=== PATIENT | female | born 1950 | race Caucasian/White ===

== ENCOUNTER 2022-08-08 12:05 | Inpatient (IN) | payer OTHER ==
[2022-08-08] MEDS ORDERED: ALBUTEROL SO4 2.5/IPRATROPIUM 0.5 INH SOL 3 ML VIAL.NEB. NEB ONE (13:01)
[2022-08-08 14:25] LABS: BASO % 0.3 % (0-2.0); HEMATOCRIT 38.6 % (32.4-45.2); HEMOGLOBIN 12.7 GM/dL (10.7-15.3); LYMPH % 9.1 % (8-40); MCH 29.6 pg (25.7-33.7); MCHC 32.9 g/dl (32.0-36.0); MEAN PLT VOLUME 10.7 fl (7.5-11.1); NEUT % 86.6 % (42.8-82.8); PLATELET COUNT 191 10^3/uL (134-434); RBC 4.29 M/mm3 (3.60-5.2); RDW 13.5 % (11.6-15.6); WHITE BLOOD COUNT 10.9 K/mm3 (4.0-10.0)
[2022-08-08 14:48] LABS: CALCIUM 9.3 mg/dL (8.5-10.1)
[2022-08-08 14:49] LABS: ALBUMIN 3.1 g/dl (3.4-5.0)
[2022-08-08 14:52] LABS: CREATININE 1.1 mg/dL (0.55-1.3)
[2022-08-08 14:54] LABS: BILIRUBIN,TOTAL 0.3 mg/dL (0.2-1); TOT PROT 6.1 g/dl (6.4-8.2)
[2022-08-08] MEDS ORDERED: DEXAMETHASONE SOD PHOSPHATE 4 MG/1 ML VIAL IVPUSH ONE (18:14)
[2022-08-08] MEDS ORDERED: DEXAMETHASONE SOD PHOSPHATE 10 MG/1 ML VIAL ONE (20:55)
[2022-08-08] MEDS ORDERED: HEPARIN NA (PORCINE) 5,000 UNITS/ML 1ML VIAL ONE (20:55)
[2022-08-08] MEDS: HEPARIN NA (PORCINE) 5,000 UNITS/ML 1ML VIAL SQ SCH (21:11)
[2022-08-08] MEDS ORDERED: REMDESIVIR 200 MG in SODIUM CHLORIDE 250 ML IVPB ONE (21:13)
[2022-08-08] MEDS ORDERED: ACETAMINOPHEN 1000 MG/100 ML BAG IVPB PRN (21:13)
[2022-08-08] MEDS ORDERED: ALBUTEROL SO4 HFA INHALER IH PRN (21:13)
[2022-08-08] MEDS ORDERED: FAMOTIDINE 20 MG/50 ML IVPB 20 MG/50 ML MG IVPB ONE (22:57)
[2022-08-08] MEDS: FAMOTIDINE 20 MG/50 ML IVPB 20 MG/50 ML MG IVPB SCH (23:07)
[2022-08-08] MEDS: QUEtiapine FUMARATE 50 MG TABLET PO SCH (23:07)
[2022-08-09] MEDS: HEPARIN NA (PORCINE) 5,000 UNITS/ML 1ML VIAL SQ SCH ×3 (06:33→21:09)
[2022-08-09] MEDS: amLODIPine BESYLATE 10 MG TABLET (FP) PO SCH (09:24)
[2022-08-09] MEDS: MEMANTINE HCL 5 MG TABLET (UD) PO SCH (09:24)
[2022-08-09] MEDS: FAMOTIDINE 20 MG/50 ML IVPB 20 MG/50 ML MG IVPB SCH ×2 (09:24→21:10)
[2022-08-09] MEDS: DEXAMETHASONE SOD PHOSPHATE 10 MG/1 ML VIAL IVPUSH SCH (09:24)
[2022-08-09] MEDS ORDERED: DEXAMETHASONE 4 MG TABLET (FP) PO SCH (10:00)
[2022-08-09 11:02] LABS: HEMATOCRIT 39.2 % (32.4-45.2); HEMOGLOBIN 13.1 GM/dL (10.7-15.3); MCH 29.8 pg (25.7-33.7); MCHC 33.4 g/dl (32.0-36.0); MEAN CELL VOLUME 89.3 fl (80-96); MEAN PLT VOLUME 11.6 fl (7.5-11.1); PLATELET COUNT 178 10^3/uL (134-434); RBC 4.39 M/mm3 (3.60-5.2); RDW 13.6 % (11.6-15.6); WHITE BLOOD COUNT 7.8 K/mm3 (4.0-10.0)
[2022-08-09 11:26] LABS: ALBUMIN 2.8 g/dl (3.4-5.0); BLOOD UREA NITROGEN 32.9 mg/dL (7-18); MAGNESIUM 2.2 mg/dL (1.8-2.4)
[2022-08-09 11:29] LABS: PHOSPHOROUS 3.4 mg/dL (2.5-4.9)
[2022-08-09 11:31] LABS: BILIRUBIN,TOTAL 0.3 mg/dL (0.2-1); TOT PROT 5.9 g/dl (6.4-8.2)
[2022-08-09] MEDS ORDERED: REMDESIVIR IVPB ONE ×2 (13:32→15:00)
[2022-08-09] MEDS ORDERED: SODIUM CHLORIDE IVPB ONE ×2 (13:32→15:00)
[2022-08-09] MEDS ORDERED: SODIUM CHLORIDE IVPB SCH ×2 (13:45→15:00)
[2022-08-09] MEDS ORDERED: REMDESIVIR IVPB SCH ×2 (13:45→15:00)
[2022-08-09 16:09] LABS: EPI CELLS 6 /uL (0-25.1); HYALINE CASTS 0 /uL (0-3.1); URINE APPEARANCE CLOUDY; URINE BACTERIA >9,000 /uL (0-1359); URINE BILIRUBIN NEGATIVE (NEGATIVE); URINE COLOR YELLOW; URINE GLUCOSE (UA) NEGATIVE (NEGATIVE); URINE KETONE NEGATIVE (NEGATIVE); URINE LEUK ESTERASE NEGATIVE (NEGATIVE); URINE NITRITE POSITIVE (NEGATIVE); URINE PROTEIN 1+ (NEGATIVE); URINE RBC 5 /uL (0-23.9); URINE UROBILINOGEN 0.2 mg/dL (0.2-1.0)
[2022-08-09 17:43] LABS: URINE WBC 5 /uL (0-25.8)
[2022-08-09] MEDS: DONEPEZIL HCL 5 MG TABLET (FP) PO SCH (21:09)
[2022-08-09] MEDS: QUEtiapine FUMARATE 50 MG TABLET PO SCH (21:09)
[2022-08-10] MEDS: HEPARIN NA (PORCINE) 5,000 UNITS/ML 1ML VIAL SQ SCH ×3 (06:07→22:10)
[2022-08-10 12:34] LABS: CREATININE 0.8 mg/dL (0.55-1.3)
[2022-08-10] MEDS: DEXAMETHASONE SOD PHOSPHATE 10 MG/1 ML VIAL IVPUSH SCH (12:34)
[2022-08-10 12:36] LABS: ALBUMIN 2.6 g/dl (3.4-5.0); BILIRUBIN,TOTAL 0.2 mg/dL (0.2-1); BLOOD UREA NITROGEN 46.6 mg/dL (7-18); CALCIUM 8.8 mg/dL (8.5-10.1); TOT PROT 5.6 g/dl (6.4-8.2)
[2022-08-10] MEDS: MEMANTINE HCL 5 MG TABLET (UD) PO SCH (12:37)
[2022-08-10] MEDS: amLODIPine BESYLATE 10 MG TABLET (FP) PO SCH (12:37)
[2022-08-10] MEDS: FAMOTIDINE 20 MG/50 ML IVPB 20 MG/50 ML MG IVPB SCH ×2 (12:38→22:10)
[2022-08-10] MEDS: REMDESIVIR IVPB SCH (15:04)
[2022-08-10] MEDS: SODIUM CHLORIDE IVPB SCH (15:04)
[2022-08-10 15:29] VITALS: BMI 16.6
[2022-08-10] MEDS: DONEPEZIL HCL 5 MG TABLET (FP) PO SCH (22:10)
[2022-08-10] MEDS: QUEtiapine FUMARATE 50 MG TABLET PO SCH (22:10)
[2022-08-11] MEDS: HEPARIN NA (PORCINE) 5,000 UNITS/ML 1ML VIAL SQ SCH ×3 (05:42→22:42)
[2022-08-11] MEDS: AMINO ACIDS/PROTEIN HYDROLYS 30 ML LIQUID.PKT PO SCH (09:14)
[2022-08-11] MEDS: DEXAMETHASONE SOD PHOSPHATE 10 MG/1 ML VIAL IVPUSH SCH (09:15)
[2022-08-11] MEDS: MULTIVITAMINS (DAILY MVI) TABLET (FP) PO SCH (09:15)
[2022-08-11] MEDS: amLODIPine BESYLATE 10 MG TABLET (FP) PO SCH (09:15)
[2022-08-11] MEDS: ASCORBIC ACID 500 MG TABLET (FP) PO SCH (09:15)
[2022-08-11] MEDS: MEMANTINE HCL 5 MG TABLET (UD) PO SCH (09:15)
[2022-08-11] MEDS: FAMOTIDINE 20 MG/50 ML IVPB 20 MG/50 ML MG IVPB SCH ×2 (09:15→22:42)
[2022-08-11] MEDS: REMDESIVIR IVPB SCH (14:35)
[2022-08-11] MEDS: SODIUM CHLORIDE IVPB SCH (14:35)
[2022-08-11] MEDS: DONEPEZIL HCL 5 MG TABLET (FP) PO SCH (22:42)
[2022-08-11] MEDS: QUEtiapine FUMARATE 50 MG TABLET PO SCH (22:42)
[2022-08-12] MEDS: HEPARIN NA (PORCINE) 5,000 UNITS/ML 1ML VIAL SQ SCH ×3 (07:08→21:25)
[2022-08-12] MEDS: AMINO ACIDS/PROTEIN HYDROLYS 30 ML LIQUID.PKT PO SCH (08:33)
[2022-08-12] MEDS: FAMOTIDINE 20 MG/50 ML IVPB 20 MG/50 ML MG IVPB SCH ×2 (10:32→21:25)
[2022-08-12] MEDS: ASCORBIC ACID 500 MG TABLET (FP) PO SCH (10:32)
[2022-08-12] MEDS: MULTIVITAMINS (DAILY MVI) TABLET (FP) PO SCH (10:32)
[2022-08-12] MEDS: MEMANTINE HCL 5 MG TABLET (UD) PO SCH (10:32)
[2022-08-12] MEDS: amLODIPine BESYLATE 10 MG TABLET (FP) PO SCH (10:32)
[2022-08-12] MEDS: DEXAMETHASONE SOD PHOSPHATE 10 MG/1 ML VIAL IVPUSH SCH (10:32)
[2022-08-12] MEDS: REMDESIVIR IVPB SCH (14:39)
[2022-08-12] MEDS: SODIUM CHLORIDE IVPB SCH (14:39)
[2022-08-12] MEDS ORDERED: CEFTRIAXONE 1 GM in DEXTROSE 5%-WATER - 50 ML IVPB ONE (20:06)
[2022-08-12] MEDS: QUEtiapine FUMARATE 50 MG TABLET PO SCH (21:25)
[2022-08-12] MEDS: DONEPEZIL HCL 5 MG TABLET (FP) PO SCH (21:25)
[2022-08-13] MEDS: HEPARIN NA (PORCINE) 5,000 UNITS/ML 1ML VIAL SQ SCH ×3 (05:16→21:14)
[2022-08-13] MEDS: AMINO ACIDS/PROTEIN HYDROLYS 30 ML LIQUID.PKT PO SCH (08:07)
[2022-08-13] MEDS: MULTIVITAMINS (DAILY MVI) TABLET (FP) PO SCH (09:43)
[2022-08-13] MEDS: DEXAMETHASONE SOD PHOSPHATE 10 MG/1 ML VIAL IVPUSH SCH (09:43)
[2022-08-13] MEDS: MEMANTINE HCL 5 MG TABLET (UD) PO SCH (09:43)
[2022-08-13] MEDS: amLODIPine BESYLATE 10 MG TABLET (FP) PO SCH (09:43)
[2022-08-13] MEDS: ASCORBIC ACID 500 MG TABLET (FP) PO SCH (09:43)
[2022-08-13] MEDS: FAMOTIDINE 20 MG/50 ML IVPB 20 MG/50 ML MG IVPB SCH ×2 (09:44→21:15)
[2022-08-13 10:14] LABS: ALBUMIN 2.4 g/dl (3.4-5.0); BLOOD UREA NITROGEN 39.2 mg/dL (7-18); CREATININE 0.7 mg/dL (0.55-1.3)
[2022-08-13 10:15] LABS: BILIRUBIN,TOTAL 0.3 mg/dL (0.2-1); TOT PROT 5.1 g/dl (6.4-8.2)
[2022-08-13] MEDS ORDERED: DEXTROSE 5%-WATER - 1,000 ML IV SCH (10:15)
[2022-08-13 10:17] LABS: CALCIUM 8.2 mg/dL (8.5-10.1)
[2022-08-13] MEDS: CEFTRIAXONE 1 GM in DEXTROSE 5%-WATER - 50 ML IVPB SCH (13:19)
[2022-08-13] MEDS: DEXTROSE 5%-WATER - 1,000 ML IV SCH (16:40)
[2022-08-13] MEDS: QUEtiapine FUMARATE 50 MG TABLET PO SCH (21:15)
[2022-08-13] MEDS: DONEPEZIL HCL 5 MG TABLET (FP) PO SCH (21:15)
[2022-08-14 05:36] LABS: ARTERIAL BLD GAS O2 SATURATION 91.6 % (95-98); ARTERIAL BLOOD GAS BASE EXCESS -2.6 mmol/L (-2-2); ARTERIAL BLOOD GAS PO2 58.1 mmHg (80-100); ARTERIAL BLOOD GAS pH 7.445 (7.350-7.450)
[2022-08-14] MEDS: DEXTROSE 5%-WATER - 1,000 ML IV SCH ×3 (06:11→23:41)
[2022-08-14] MEDS ORDERED: PIPERACILLIN/TAZOB 4.5 GM 4.5 GM in DEXTROSE 5%-WATER 100 ML IVPB SCH ×2 (06:15→09:00)
[2022-08-14] MEDS: HEPARIN NA (PORCINE) 5,000 UNITS/ML 1ML VIAL SQ SCH ×4 (06:47→23:14)
[2022-08-14] MEDS: AMINO ACIDS/PROTEIN HYDROLYS 30 ML LIQUID.PKT PO SCH (08:45)
[2022-08-14] MEDS: PIPERACILLIN/TAZOB 4.5 GM 4.5 GM in DEXTROSE 5%-WATER 100 ML IVPB SCH ×2 (09:27→14:19)
[2022-08-14] MEDS: MEMANTINE HCL 5 MG TABLET (UD) PO SCH (09:28)
[2022-08-14] MEDS: amLODIPine BESYLATE 10 MG TABLET (FP) PO SCH (09:28)
[2022-08-14] MEDS: DEXAMETHASONE SOD PHOSPHATE 10 MG/1 ML VIAL IVPUSH SCH (09:28)
[2022-08-14] MEDS: FAMOTIDINE 20 MG/50 ML IVPB 20 MG/50 ML MG IVPB SCH ×3 (09:28→23:15)
[2022-08-14] MEDS: CEFTRIAXONE 1 GM in DEXTROSE 5%-WATER - 50 ML IVPB SCH (09:29)
[2022-08-14] MEDS: ASCORBIC ACID 500 MG TABLET (FP) PO SCH (09:30)
[2022-08-14] MEDS: MULTIVITAMINS (DAILY MVI) TABLET (FP) PO SCH (09:30)
[2022-08-14] MEDS ORDERED: VANCOMYCIN 1 GM in D5W (PRE-DOCKED) 1,000 MG/250 ML IVPB SCH (10:00)
[2022-08-14] MEDS: DONEPEZIL HCL 5 MG TABLET (FP) PO SCH ×2 (22:53→23:15)
[2022-08-14] MEDS: QUEtiapine FUMARATE 50 MG TABLET PO SCH ×2 (22:54→23:14)
[2022-08-15] MEDS: PIPERACILLIN/TAZOB 3.375 GM 3.375 GM in DEXTROSE 5%-WATER - 50 ML IVPB SCH ×3 (03:11→18:08)
[2022-08-15] MEDS: HEPARIN NA (PORCINE) 5,000 UNITS/ML 1ML VIAL SQ SCH ×3 (06:32→21:30)
[2022-08-15] MEDS: AMINO ACIDS/PROTEIN HYDROLYS 30 ML LIQUID.PKT PO SCH (08:57)
[2022-08-15 09:44] LABS: BASO % 0.1 % (0-2.0); HEMATOCRIT 38.8 % (32.4-45.2); HEMOGLOBIN 12.6 GM/dL (10.7-15.3); MCH 29.3 pg (25.7-33.7); MCHC 32.4 g/dl (32.0-36.0); MEAN CELL VOLUME 90.4 fl (80-96); MEAN PLT VOLUME 10.7 fl (7.5-11.1); MONO % 6.9 % (3.8-10.2); PLATELET COUNT 209 10^3/uL (134-434); RBC 4.29 M/mm3 (3.60-5.2); RDW 14.3 % (11.6-15.6); WHITE BLOOD COUNT 8.3 K/mm3 (4.0-10.0)
[2022-08-15 11:11] LABS: ALBUMIN 2.2 g/dl (3.4-5.0); BLOOD UREA NITROGEN 29.2 mg/dL (7-18); CALCIUM 8.3 mg/dL (8.5-10.1); MAGNESIUM 2.3 mg/dL (1.8-2.4)
[2022-08-15 11:15] LABS: BILIRUBIN,TOTAL 0.3 mg/dL (0.2-1); CREATININE 0.8 mg/dL (0.55-1.3); TOT PROT 5.2 g/dl (6.4-8.2)
[2022-08-15] MEDS: MEMANTINE HCL 5 MG TABLET (UD) PO SCH (11:27)
[2022-08-15] MEDS: DEXAMETHASONE SOD PHOSPHATE 10 MG/1 ML VIAL IVPUSH SCH (11:27)
[2022-08-15] MEDS: amLODIPine BESYLATE 10 MG TABLET (FP) PO SCH (11:28)
[2022-08-15] MEDS: FAMOTIDINE 20 MG/50 ML IVPB 20 MG/50 ML MG IVPB SCH ×2 (11:28→21:30)
[2022-08-15] MEDS: MULTIVITAMINS (DAILY MVI) TABLET (FP) PO SCH (11:28)
[2022-08-15] MEDS: ASCORBIC ACID 500 MG TABLET (FP) PO SCH (11:28)
[2022-08-15] MEDS: DEXTROSE 5%-WATER - 1,000 ML IV SCH ×3 (18:08→18:10)
[2022-08-15] MEDS: DONEPEZIL HCL 5 MG TABLET (FP) PO SCH (21:30)
[2022-08-15] MEDS: QUEtiapine FUMARATE 50 MG TABLET PO SCH (21:30)
[2022-08-16] MEDS: PIPERACILLIN/TAZOB 3.375 GM 3.375 GM in DEXTROSE 5%-WATER - 50 ML IVPB SCH ×3 (02:24→17:55)
[2022-08-16] MEDS: HEPARIN NA (PORCINE) 5,000 UNITS/ML 1ML VIAL SQ SCH ×3 (05:43→21:25)
[2022-08-16] MEDS: AMINO ACIDS/PROTEIN HYDROLYS 30 ML LIQUID.PKT PO SCH (08:35)
[2022-08-16 09:08] VITALS: RESP 20
[2022-08-16 09:56] LABS: HEMATOCRIT 35.9 % (32.4-45.2); HEMOGLOBIN 11.7 GM/dL (10.7-15.3); MCH 29.9 pg (25.7-33.7); MCHC 32.8 g/dl (32.0-36.0); MEAN CELL VOLUME 91.3 fl (80-96); MEAN PLT VOLUME 10.8 fl (7.5-11.1); PLATELET COUNT 191 10^3/uL (134-434); RBC 3.93 M/mm3 (3.60-5.2); RDW 14.2 % (11.6-15.6); WHITE BLOOD COUNT 11.2 K/mm3 (4.0-10.0)
[2022-08-16 10:16] LABS: ALBUMIN 2.1 g/dl (3.4-5.0); BLOOD UREA NITROGEN 33.6 mg/dL (7-18); MAGNESIUM 2.4 mg/dL (1.8-2.4)
[2022-08-16 10:19] LABS: CREATININE 0.8 mg/dL (0.55-1.3)
[2022-08-16 10:21] LABS: BILIRUBIN,TOTAL 0.2 mg/dL (0.2-1); TOT PROT 5.1 g/dl (6.4-8.2)
[2022-08-16] MEDS: DEXAMETHASONE SOD PHOSPHATE 10 MG/1 ML VIAL IVPUSH SCH (10:37)
[2022-08-16] MEDS: FAMOTIDINE 20 MG/50 ML IVPB 20 MG/50 ML MG IVPB SCH ×2 (10:38→21:26)
[2022-08-16] MEDS: amLODIPine BESYLATE 10 MG TABLET (FP) PO SCH (10:38)
[2022-08-16] MEDS: MULTIVITAMINS (DAILY MVI) TABLET (FP) PO SCH (10:38)
[2022-08-16] MEDS: MEMANTINE HCL 5 MG TABLET (UD) PO SCH (10:38)
[2022-08-16] MEDS: ASCORBIC ACID 500 MG TABLET (FP) PO SCH (10:38)
[2022-08-16] MEDS: SODIUM CHLORIDE 0.45% 1,000 ML IV SCH (11:55)
[2022-08-16 12:18] LABS: ANISOCYTOSIS 0; MACROCYTOSIS 0; PLATELET ESTIMATE NORMAL
[2022-08-16] MEDS: DONEPEZIL HCL 5 MG TABLET (FP) PO SCH (21:25)
[2022-08-16] MEDS: QUEtiapine FUMARATE 50 MG TABLET PO SCH (21:25)
[2022-08-17] MEDS: PIPERACILLIN/TAZOB 3.375 GM 3.375 GM in DEXTROSE 5%-WATER - 50 ML IVPB SCH ×3 (01:47→17:48)
[2022-08-17] MEDS: HEPARIN NA (PORCINE) 5,000 UNITS/ML 1ML VIAL SQ SCH ×3 (05:23→22:02)
[2022-08-17] MEDS: AMINO ACIDS/PROTEIN HYDROLYS 30 ML LIQUID.PKT PO SCH (10:04)
[2022-08-17] MEDS: MULTIVITAMINS (DAILY MVI) TABLET (FP) PO SCH (10:09)
[2022-08-17] MEDS: amLODIPine BESYLATE 10 MG TABLET (FP) PO SCH (10:09)
[2022-08-17] MEDS: MEMANTINE HCL 5 MG TABLET (UD) PO SCH (10:09)
[2022-08-17] MEDS: FAMOTIDINE 20 MG/50 ML IVPB 20 MG/50 ML MG IVPB SCH ×2 (10:09→22:02)
[2022-08-17] MEDS: DEXAMETHASONE SOD PHOSPHATE 10 MG/1 ML VIAL IVPUSH SCH (10:09)
[2022-08-17] MEDS: ASCORBIC ACID 500 MG TABLET (FP) PO SCH (10:09)
[2022-08-17 11:40] LABS: EOS % 0.1 % (0-4.5); HEMATOCRIT 38.4 % (32.4-45.2); HEMOGLOBIN 12.7 GM/dL (10.7-15.3); MCH 30.1 pg (25.7-33.7); MEAN CELL VOLUME 91.4 fl (80-96); MEAN PLT VOLUME 11.4 fl (7.5-11.1); MONO % 5.3 % (3.8-10.2); NEUT % 90.6 % (42.8-82.8); PLATELET COUNT 175 10^3/uL (134-434); RBC 4.21 M/mm3 (3.60-5.2); RDW 14.1 % (11.6-15.6)
[2022-08-17 11:48] LABS: ALBUMIN 2.4 g/dl (3.4-5.0); BLOOD UREA NITROGEN 30.2 mg/dL (7-18); CALCIUM 8.5 mg/dL (8.5-10.1); MAGNESIUM 2.5 mg/dL (1.8-2.4)
[2022-08-17 11:52] LABS: BILIRUBIN,TOTAL 0.3 mg/dL (0.2-1); CREATININE 0.8 mg/dL (0.55-1.3); TOT PROT 5.5 g/dl (6.4-8.2)
[2022-08-17] MEDS: SODIUM CHLORIDE 0.45% 1,000 ML IV SCH (14:29)
[2022-08-17] MEDS: DONEPEZIL HCL 5 MG TABLET (FP) PO SCH (22:02)
[2022-08-17] MEDS: QUEtiapine FUMARATE 50 MG TABLET PO SCH (22:03)
[2022-08-18] MEDS: PIPERACILLIN/TAZOB 3.375 GM 3.375 GM in DEXTROSE 5%-WATER - 50 ML IVPB SCH ×3 (01:35→17:10)
[2022-08-18] MEDS: HEPARIN NA (PORCINE) 5,000 UNITS/ML 1ML VIAL SQ SCH ×3 (06:42→21:41)
[2022-08-18] MEDS: AMINO ACIDS/PROTEIN HYDROLYS 30 ML LIQUID.PKT PO SCH (09:00)
[2022-08-18] MEDS: FAMOTIDINE 20 MG/50 ML IVPB 20 MG/50 ML MG IVPB SCH ×2 (09:00→21:40)
[2022-08-18] MEDS: ASCORBIC ACID 500 MG TABLET (FP) PO SCH (09:01)
[2022-08-18] MEDS: DEXAMETHASONE SOD PHOSPHATE 10 MG/1 ML VIAL IVPUSH SCH (09:01)
[2022-08-18] MEDS: MULTIVITAMINS (DAILY MVI) TABLET (FP) PO SCH (09:01)
[2022-08-18] MEDS: MEMANTINE HCL 5 MG TABLET (UD) PO SCH (09:01)
[2022-08-18] MEDS: amLODIPine BESYLATE 10 MG TABLET (FP) PO SCH (09:01)
[2022-08-18] MEDS: SODIUM CHLORIDE 0.45% 1,000 ML IV SCH (11:30)
[2022-08-18 12:14] LABS: HEMATOCRIT 38.6 % (32.4-45.2); HEMOGLOBIN 12.7 GM/dL (10.7-15.3); MCH 29.6 pg (25.7-33.7); MCHC 32.9 g/dl (32.0-36.0); MEAN CELL VOLUME 89.9 fl (80-96); MEAN PLT VOLUME 10.9 fl (7.5-11.1); PLATELET COUNT 167 10^3/uL (134-434); RBC 4.29 M/mm3 (3.60-5.2); RDW 13.9 % (11.6-15.6); WHITE BLOOD COUNT 24.9 K/mm3 (4.0-10.0)
[2022-08-18 12:35] LABS: BLOOD UREA NITROGEN 23.9 mg/dL (7-18); CALCIUM 8.6 mg/dL (8.5-10.1)
[2022-08-18 12:36] LABS: ALBUMIN 2.2 g/dl (3.4-5.0); MAGNESIUM 2.4 mg/dL (1.8-2.4)
[2022-08-18 12:39] LABS: CREATININE 0.6 mg/dL (0.55-1.3)
[2022-08-18 12:40] LABS: BILIRUBIN,TOTAL 0.5 mg/dL (0.2-1); TOT PROT 5.3 g/dl (6.4-8.2)
[2022-08-18 13:39] LABS: ANISOCYTOSIS 0; HELMET CELLS 0; HOWELL-JOLLY BODIES 0; MACROCYTOSIS 0; OVALOCYTE 0; ROULEAU 0; SICKELED CELLS 0; TARGET CELLS 0; TEAR DROP CELLS 0; TOXIC GRANULATION 0
[2022-08-18] MEDS: QUEtiapine FUMARATE 50 MG TABLET PO SCH (21:40)
[2022-08-18] MEDS: DONEPEZIL HCL 5 MG TABLET (FP) PO SCH (21:40)
[2022-08-19] MEDS: PIPERACILLIN/TAZOB 3.375 GM 3.375 GM in DEXTROSE 5%-WATER - 50 ML IVPB SCH ×3 (02:48→18:11)
[2022-08-19] MEDS: HEPARIN NA (PORCINE) 5,000 UNITS/ML 1ML VIAL SQ SCH ×3 (05:18→22:35)
[2022-08-19] MEDS: AMINO ACIDS/PROTEIN HYDROLYS 30 ML LIQUID.PKT PO SCH (09:06)
[2022-08-19] MEDS: DEXAMETHASONE SOD PHOSPHATE 10 MG/1 ML VIAL IVPUSH SCH (10:16)
[2022-08-19] MEDS: ASCORBIC ACID 500 MG TABLET (FP) PO SCH (10:17)
[2022-08-19] MEDS: FAMOTIDINE 20 MG/50 ML IVPB 20 MG/50 ML MG IVPB SCH ×2 (10:17→22:35)
[2022-08-19] MEDS: MEMANTINE HCL 5 MG TABLET (UD) PO SCH (10:17)
[2022-08-19] MEDS: amLODIPine BESYLATE 10 MG TABLET (FP) PO SCH (10:17)
[2022-08-19] MEDS: MULTIVITAMINS (DAILY MVI) TABLET (FP) PO SCH (10:17)
[2022-08-19 10:19] LABS: BASO % 0.1 % (0-2.0); EOS % 0.3 % (0-4.5); HEMOGLOBIN 12.4 GM/dL (10.7-15.3); LYMPH % 6.3 % (8-40); MCH 29.1 pg (25.7-33.7); MCHC 32.6 g/dl (32.0-36.0); MEAN CELL VOLUME 89.4 fl (80-96); MONO % 6.2 % (3.8-10.2); NEUT % 87.1 % (42.8-82.8); PLATELET COUNT 163 10^3/uL (134-434); RBC 4.25 M/mm3 (3.60-5.2); RDW 13.8 % (11.6-15.6); WHITE BLOOD COUNT 16.1 K/mm3 (4.0-10.0)
[2022-08-19 11:32] LABS: ALBUMIN 2.2 g/dl (3.4-5.0); BILIRUBIN,TOTAL 0.3 mg/dL (0.2-1); BLOOD UREA NITROGEN 18.4 mg/dL (7-18); CALCIUM 8.2 mg/dL (8.5-10.1); CREATININE 0.7 mg/dL (0.55-1.3); MAGNESIUM 2.4 mg/dL (1.8-2.4); TOT PROT 5.1 g/dl (6.4-8.2)
[2022-08-19] MEDS: SODIUM CHLORIDE 0.45% 1,000 ML IV SCH ×2 (14:45→18:10)
[2022-08-19] MEDS: QUEtiapine FUMARATE 50 MG TABLET PO SCH (22:35)
[2022-08-19] MEDS: DONEPEZIL HCL 5 MG TABLET (FP) PO SCH (22:35)
[2022-08-20] MEDS: PIPERACILLIN/TAZOB 3.375 GM 3.375 GM in DEXTROSE 5%-WATER - 50 ML IVPB SCH ×2 (02:03→10:23)
[2022-08-20] MEDS: HEPARIN NA (PORCINE) 5,000 UNITS/ML 1ML VIAL SQ SCH ×2 (05:27→13:31)
[2022-08-20] MEDS: AMINO ACIDS/PROTEIN HYDROLYS 30 ML LIQUID.PKT PO SCH (10:24)
[2022-08-20] MEDS: MULTIVITAMINS (DAILY MVI) TABLET (FP) PO SCH (10:24)
[2022-08-20] MEDS: ASCORBIC ACID 500 MG TABLET (FP) PO SCH (10:24)
[2022-08-20] MEDS: amLODIPine BESYLATE 10 MG TABLET (FP) PO SCH ×2 (10:24→10:26)
[2022-08-20] MEDS: MEMANTINE HCL 5 MG TABLET (UD) PO SCH (10:24)
[2022-08-20] MEDS: FAMOTIDINE 20 MG/50 ML IVPB 20 MG/50 ML MG IVPB SCH (11:19)
[2022-08-20] MEDS ORDERED: COLLAGENASE CLOSTRIDIUM HIST. 30 GRAMS TUBE TP SCH (12:15)
[2022-08-20 13:34] LABS: BASO % 0.1 % (0-2.0); EOS % 0.5 % (0-4.5); HEMATOCRIT 38.6 % (32.4-45.2); HEMOGLOBIN 12.8 GM/dL (10.7-15.3); MCH 29.8 pg (25.7-33.7); MEAN CELL VOLUME 90.3 fl (80-96); MONO % 7.8 % (3.8-10.2); NEUT % 84.6 % (42.8-82.8); PLATELET COUNT 192 10^3/uL (134-434); RBC 4.28 M/mm3 (3.60-5.2); RDW 13.8 % (11.6-15.6)
[2022-08-20 14:03] LABS: CALCIUM 8.3 mg/dL (8.5-10.1)
[2022-08-20 14:04] LABS: ALBUMIN 2.4 g/dl (3.4-5.0); BLOOD UREA NITROGEN 14.6 mg/dL (7-18); MAGNESIUM 2.3 mg/dL (1.8-2.4)
[2022-08-20 14:07] LABS: CREATININE 0.6 mg/dL (0.55-1.3)
[2022-08-20 14:08] LABS: BILIRUBIN,TOTAL 0.3 mg/dL (0.2-1)
[2022-08-20 14:09] LABS: TOT PROT 5.6 g/dl (6.4-8.2)
[2022-08-20 19:18] VITALS: BP 127/68; PULSE 74; TEMP 98
== END 2022-08-20 19:19 | disposition home or self-care (01) | DRG 871 ==
LOC: JER 12:05 → JERBED 18:15 → J6S 23:53
PROVIDERS: ADMIT Internal Medicine; ATTEND Nurse Practitioner Family
PROC: XW033E5 Introduction of Remdesivir Anti-infective into Peripheral Vein, Percutaneous Approach, New Technology Group 5 (ICD-10-PCS; principal; 2022-08-08)
DX: A41.89 Other specified sepsis (principal); E43 Unspecified severe protein-calorie malnutrition; J96.01 Acute respiratory failure with hypoxia; U07.1 COVID-19; G93.41 Metabolic encephalopathy; J69.0 Pneumonitis due to inhalation of food and vomit; N39.0 Urinary tract infection, site not specified; E87.0 Hyperosmolality and hypernatremia; E87.1 Hypo-osmolality and hyponatremia; Z68.1 Body mass index [BMI] 19.9 or less, adult; R64 Cachexia; F02.80 Dementia in other diseases classified elsewhere, unspecified severity, without behavioral disturbance, psychotic disturbance, mood disturbance, and anxiety; G30.9 Alzheimer's disease, unspecified; I10 Essential (primary) hypertension; B96.20 Unspecified Escherichia coli [E. coli] as the cause of diseases classified elsewhere
CPT/HCPCS: 0241U-QW; 36415; 36600; 71045-TC-FY; 80048; 80053; 81003; 82728; 82803; 83615; 83735; 84100; 85025; 85379; 85651; 86140; 87040; 87086; 87186; 93005; 93010; 94761; 99285-25; C9399; C9803-CS; J1100; J1644; U0003; U0005

== ENCOUNTER 2023-06-22 19:01 | Inpatient (IN) | payer OTHER ==
[2023-06-22] MEDS ORDERED: SODIUM CHLORIDE 0.9% 500 ML INFUS.BAG IV ONE (19:46)
[2023-06-22] MEDS ORDERED: PIPERACILLIN/TAZOB 3.375 GM 3.375 GM in DEXTROSE 5%-WATER - 50 ML IVPB ONE (19:52)
[2023-06-22] MEDS ORDERED: VANCOMYCIN 1,000 MG in DEXTROSE 5%-WATER - 250 ML IVPB ONE (19:52)
[2023-06-22] MEDS ORDERED: PIPERACILLIN/TAZOB 3.375 GM 3.375 GM/50 ML BAG IVPB ONE (20:48)
[2023-06-22 20:57] LABS: VENOUS O2 SATURATION 35.9 % (70-80); VENOUS PCO2 43.9 mmHg (38-52); VENOUS PH 7.269 (7.310-7.410)
[2023-06-22 21:52] LABS: BASO % 0.2 % (0-2.0); HEMATOCRIT 33.8 % (32.4-45.2); HEMOGLOBIN 10.6 GM/dL (10.7-15.3); LYMPH % 1.9 % (8-40); MCH 25.7 pg (25.7-33.7); MCHC 31.3 g/dl (32.0-36.0); MEAN CELL VOLUME 81.9 fl (80-96); MEAN PLT VOLUME 8.4 fl (7.5-11.1); MONO % 2.6 % (3.8-10.2); NEUT % 95.3 % (42.8-82.8); PLATELET COUNT 413 10^3/uL (134-434); RBC 4.12 M/mm3 (3.60-5.2); RDW 16.8 % (11.6-15.6)
[2023-06-22 21:54] LABS: LACTIC ACID 9.4 mmol/L (0.4-2.0)
[2023-06-22 21:57] LABS: INR 1.32 (0.83-1.09); PROTHROMBIN TIME (PATIENT) 15.3 SEC (9.7-13.0)
[2023-06-22 22:00] LABS: ACTIVATED PTT 41.7 SECONDS (25.2-36.5)
[2023-06-22] MEDS ORDERED: VANCOMYCIN 1 GRAM (PRE-DOCKED) 1,000 MG/250 ML BAG IVPB ONE (22:06)
[2023-06-22 23:05] LABS: POTASSIUM 4.4 mmol/L (3.5-5.1)
[2023-06-22 23:07] LABS: CALCIUM 8.5 mg/dL (8.5-10.1)
[2023-06-22 23:08] LABS: ALBUMIN 1.8 g/dl (3.4-5.0); BLOOD UREA NITROGEN 32.1 mg/dL (7-18)
[2023-06-22 23:11] LABS: CREATININE 1.2 mg/dL (0.55-1.3)
[2023-06-22 23:11] LABS: ANISOCYTOSIS 1+; PLATELET ESTIMATE INCREASED
[2023-06-22 23:12] LABS: BILIRUBIN,TOTAL 0.3 mg/dL (0.2-1); TOT PROT 5.7 g/dl (6.4-8.2)
[2023-06-22 23:33] LABS: EPI CELLS 15 /uL (0-25.1); HYALINE CASTS 0 /uL (0-3.1); URINE APPEARANCE CLEAR; URINE BACTERIA 139 /uL (0-1359); URINE BILIRUBIN NEGATIVE (NEGATIVE); URINE COLOR YELLOW; URINE GLUCOSE (UA) NEGATIVE (NEGATIVE); URINE KETONE NEGATIVE (NEGATIVE); URINE LEUK ESTERASE NEGATIVE (NEGATIVE); URINE NITRITE NEGATIVE (NEGATIVE); URINE PROTEIN 1+ (NEGATIVE); URINE RBC 17 /uL (0-23.9); URINE UROBILINOGEN 0.2 mg/dL (0.2-1.0); URINE WBC 5 /uL (0-25.8)
[2023-06-23] MEDS ORDERED: SODIUM CHLORIDE 1,000 ML IV SCH (02:15)
[2023-06-23 03:21] LABS: LACTIC ACID 4.9 mmol/L (0.4-2.0)
[2023-06-23] MEDS ORDERED: PIPERACILLIN/TAZOB 3.375 GM 3.375 GM/50 ML BAG IVPB ONE (04:20)
[2023-06-23] MEDS: PIPERACILLIN/TAZOB 3.375 GM 3.375 GM in DEXTROSE 5%-WATER - 50 ML IVPB SCH ×3 (04:24→21:08)
[2023-06-23 06:50] LABS: HEMATOCRIT 28.7 % (32.4-45.2); HEMOGLOBIN 8.9 GM/dL (10.7-15.3); MCH 25.6 pg (25.7-33.7); MEAN CELL VOLUME 82.4 fl (80-96); MEAN PLT VOLUME 8.4 fl (7.5-11.1); PLATELET COUNT 242 10^3/uL (134-434); RBC 3.48 M/mm3 (3.60-5.2); RDW 16.6 % (11.6-15.6)
[2023-06-23 07:16] LABS: POTASSIUM 3.5 mmol/L (3.5-5.1)
[2023-06-23 07:19] LABS: BLOOD UREA NITROGEN 30.5 mg/dL (7-18); CALCIUM 7.9 mg/dL (8.5-10.1)
[2023-06-23 07:20] LABS: ALBUMIN 1.5 g/dl (3.4-5.0); MAGNESIUM 1.9 mg/dL (1.8-2.4)
[2023-06-23 07:22] LABS: CREATININE 0.7 mg/dL (0.55-1.3); PHOSPHOROUS 3.8 mg/dL (2.5-4.9)
[2023-06-23 07:23] LABS: BILIRUBIN,TOTAL 0.3 mg/dL (0.2-1); TOT PROT 5.1 g/dl (6.4-8.2)
[2023-06-23 09:01] LABS: ANISOCYTOSIS 3+; MACROCYTOSIS 0
[2023-06-23] MEDS ORDERED: LACTATED RINGERS SOLUTION 1,000 ML/1,000 ML INFUS.BAG IV SCH ×2 (09:30→15:15)
[2023-06-23] MEDS ORDERED: CALCIUM 500MG/VIT-D 200 UNITS COMBO TABLET (FP) PO SCH (10:00)
[2023-06-23] MEDS ORDERED: amLODIPine BESYLATE 10 MG TABLET (FP) PO SCH (10:00)
[2023-06-23] MEDS ORDERED: MEMANTINE HCL 5 MG TABLET (UD) PO SCH (10:00)
[2023-06-23] MEDS ORDERED: COLLAGENASE CLOSTRIDIUM HIST. 30 GRAMS TUBE TP SCH (10:00)
[2023-06-23] MEDS ORDERED: ENOXAPARIN NA (PORCINE) 40 MG/0.4 ML DISP.SYRIN SQ SCH (10:00)
[2023-06-23] MEDS ORDERED: VANCOMYCIN 1,000 MG in DEXTROSE 5%-WATER - 250 ML IVPB SCH (11:00)
[2023-06-23 13:12] LABS: LACTIC ACID 2.6 mmol/L (0.4-2.0)
[2023-06-23] MEDS ORDERED: DEXTROSE 5%-WATER - 1,000 ML IV SCH ×2 (13:15→15:56)
[2023-06-23] MEDS ORDERED: AZITHROMYCIN IVPB 500 MG/250 ML BAG IVPB ONE (13:59)
[2023-06-23] MEDS ORDERED: VANCOMYCIN/WATER FOR INJ (PEG) 750 MG/150 ML BAG IVPB SCH ×2 (14:00→14:18)
[2023-06-23] MEDS ORDERED: SODIUM CHLORIDE 1,000 ML IV STA ×2 (14:46→15:07)
[2023-06-23] MEDS ORDERED: ETOMIDATE 20 MG/10 ML VIAL IVPUSH ONE (14:58)
[2023-06-23] MEDS ORDERED: SUCCINYLCHOLINE CHLORIDE 200 MG/10 ML VIAL IVPUSH ONE (14:59)
[2023-06-23] MEDS: ALBUTEROL SO4 2.5/IPRATROPIUM 0.5 INH SOL 3 ML VIAL.NEB. NEB SCH ×2 (15:41→20:15)
[2023-06-23 16:18] LABS: ARTERIAL BLD GAS O2 SATURATION 96.3 % (95-98); ARTERIAL BLOOD GAS BASE EXCESS -8.5 mmol/L (-2-2); ARTERIAL BLOOD GAS PO2 92.7 mmHg (80-100)
[2023-06-23 16:21] LABS: ALLENS TEST POSITIVE; VENT MODE AC; VENT RATE 20
[2023-06-23] MEDS: methylPREDNISolone NA SUCC 40 MG/1 ML VIAL IVPB SCH ×2 (17:38→21:06)
[2023-06-23] MEDS: MUPIROCIN 2% TOPICAL OINTMENT FOR DECOLONIZATION NS SCH (21:06)
[2023-06-23] MEDS: CHLORHEXIDINE GLUCONATE 4% CLEANSER FOR DECOLONIZATION TP SCH (21:06)
[2023-06-23] MEDS: FENTANYL CITRATE/PF 50 MCG/ML VIAL IVPUSH PRN (21:06)
[2023-06-23] MEDS: DONEPEZIL HCL 5 MG TABLET (FP) PO SCH (21:08)
[2023-06-23] MEDS: VANCOMYCIN/WATER FOR INJ (PEG) 750 MG/150 ML BAG IVPB SCH (21:09)
[2023-06-23] MEDS ORDERED: MUPIROCIN 2% TOPICAL OINTMENT FOR DECOLONIZATION NS SCH (22:00)
[2023-06-23] MEDS ORDERED: DONEPEZIL HCL 5 MG TABLET (FP) PO SCH (22:00)
[2023-06-23] MEDS ORDERED: CHLORHEXIDINE GLUCONATE 4% CLEANSER FOR DECOLONIZATION TP SCH (22:00)
[2023-06-24] MEDS: PIPERACILLIN/TAZOB 3.375 GM 3.375 GM in DEXTROSE 5%-WATER - 50 ML IVPB SCH ×4 (02:09→17:30)
[2023-06-24] MEDS: methylPREDNISolone NA SUCC 40 MG/1 ML VIAL IVPB SCH ×4 (02:10→21:24)
[2023-06-24] MEDS: FENTANYL CITRATE/PF 50 MCG/ML VIAL IVPUSH PRN (02:21)
[2023-06-24] MEDS ORDERED: PIPERACILLIN/TAZOB 3.375 GM 3.375 GM in DEXTROSE 5%-WATER - 50 ML IVPB SCH (03:00)
[2023-06-24 07:20] LABS: HEMOGLOBIN 8.1 GM/dL (10.7-15.3); MCH 25.5 pg (25.7-33.7); MCHC 31.1 g/dl (32.0-36.0); MEAN CELL VOLUME 81.8 fl (80-96); MEAN PLT VOLUME 9.3 fl (7.5-11.1); PLATELET COUNT 253 10^3/uL (134-434); RBC 3.18 M/mm3 (3.60-5.2); RDW 16.6 % (11.6-15.6); WHITE BLOOD COUNT 16.3 K/mm3 (4.0-10.0)
[2023-06-24 08:02] LABS: POTASSIUM 3.5 mmol/L (3.5-5.1)
[2023-06-24 08:04] LABS: CALCIUM 7.7 mg/dL (8.5-10.1)
[2023-06-24 08:05] LABS: ALBUMIN 1.3 g/dl (3.4-5.0); BLOOD UREA NITROGEN 20.7 mg/dL (7-18); MAGNESIUM 1.7 mg/dL (1.8-2.4)
[2023-06-24 08:08] LABS: CREATININE 0.5 mg/dL (0.55-1.3); PHOSPHOROUS 2.8 mg/dL (2.5-4.9)
[2023-06-24 08:09] LABS: BILIRUBIN,TOTAL 0.3 mg/dL (0.2-1); TOT PROT 4.4 g/dl (6.4-8.2)
[2023-06-24] MEDS: ALBUTEROL SO4 2.5/IPRATROPIUM 0.5 INH SOL 3 ML VIAL.NEB. NEB SCH ×4 (08:21→19:45)
[2023-06-24 08:53] LABS: ANISOCYTOSIS 1+; MACROCYTOSIS 0
[2023-06-24] MEDS ORDERED: MAGNESIUM SULFATE IN WATER 2 GM/50 ML IVPB IVPB ONE (09:00)
[2023-06-24] MEDS: VANCOMYCIN/WATER FOR INJ (PEG) 750 MG/150 ML BAG IVPB SCH (09:01)
[2023-06-24 09:10] LABS: ARTERIAL BLD GAS O2 SATURATION 87.6 % (95-98); ARTERIAL BLOOD GAS BASE EXCESS 0.7 mmol/L (-2-2); ARTERIAL BLOOD GAS PO2 49.5 mmHg (80-100); ARTERIAL BLOOD GAS pH 7.465 (7.350-7.450)
[2023-06-24 09:11] LABS: ALLENS TEST POSITIVE
[2023-06-24 09:12] LABS: VENT MODE A/C; VENT RATE 20
[2023-06-24] MEDS: CALCIUM 500MG/VIT-D 200 UNITS COMBO TABLET (FP) PO SCH (09:27)
[2023-06-24] MEDS: MEMANTINE HCL 5 MG TABLET (UD) PO SCH (09:27)
[2023-06-24] MEDS ORDERED: ENOXAPARIN NA (PORCINE) 40 MG/0.4 ML DISP.SYRIN SQ SCH (10:00)
[2023-06-24] MEDS: PROPOFOL 1,000,000 MCG/100 ML VIAL IVPB SCH (10:48)
[2023-06-24] MEDS: PANTOPRAZOLE SODIUM 40 MG VIAL IVPUSH SCH (10:48)
[2023-06-24] MEDS: FENTANYL NS IVPB 500 MCG/100 ML BAG IVPB SCH (10:49)
[2023-06-24] MEDS: COLLAGENASE CLOSTRIDIUM HIST. 30 GRAMS TUBE TP SCH (10:51)
[2023-06-24] MEDS: MUPIROCIN 2% TOPICAL OINTMENT FOR DECOLONIZATION NS SCH ×2 (10:52→21:25)
[2023-06-24] MEDS: LACTATED RINGERS SOLUTION 1,000 ML/1,000 ML INFUS.BAG IV SCH ×2 (10:55→21:26)
[2023-06-24] MEDS ORDERED: metoPROLOL SUCCINATE 25 MG TAB.SR.24H (FP) PO SCH (11:00)
[2023-06-24] MEDS ORDERED: VANCOMYCIN 1,000 MG in DEXTROSE 5%-WATER - 250 ML IVPB SCH (11:00)
[2023-06-24] MEDS ORDERED: SODIUM CHLORIDE 500 ML IV STA (12:21)
[2023-06-24] MEDS: DONEPEZIL HCL 5 MG TABLET (FP) PO SCH (21:24)
[2023-06-24] MEDS: ENOXAPARIN NA (PORCINE) 30 MG/0.3 ML DISP.SYRIN SQ SCH (21:25)
[2023-06-24] MEDS: CHLORHEXIDINE GLUCONATE 4% CLEANSER FOR DECOLONIZATION TP SCH (21:25)
[2023-06-24] MEDS ORDERED: VANCOMYCIN 500 MG in DEXTROSE 5%-WATER - 100 ML IVPB SCH (22:00)
[2023-06-25] MEDS: PIPERACILLIN/TAZOB 3.375 GM 3.375 GM in DEXTROSE 5%-WATER - 50 ML IVPB SCH ×4 (02:05→18:18)
[2023-06-25] MEDS: methylPREDNISolone NA SUCC 40 MG/1 ML VIAL IVPB SCH ×2 (02:05→09:09)
[2023-06-25 07:37] LABS: HEMATOCRIT 23.8 % (32.4-45.2); HEMOGLOBIN 7.6 GM/dL (10.7-15.3); MCH 25.6 pg (25.7-33.7); MCHC 32.1 g/dl (32.0-36.0); MEAN CELL VOLUME 79.9 fl (80-96); MEAN PLT VOLUME 8.9 fl (7.5-11.1); PLATELET COUNT 201 10^3/uL (134-434); RBC 2.97 M/mm3 (3.60-5.2); RDW 16.2 % (11.6-15.6); WHITE BLOOD COUNT 11.2 K/mm3 (4.0-10.0)
[2023-06-25] MEDS: ALBUTEROL SO4 2.5/IPRATROPIUM 0.5 INH SOL 3 ML VIAL.NEB. NEB SCH ×4 (07:50→20:33)
[2023-06-25 07:53] LABS: POTASSIUM 3.1 mmol/L (3.5-5.1)
[2023-06-25 08:17] LABS: ALBUMIN 1.3 g/dl (3.4-5.0); MAGNESIUM 2.1 mg/dL (1.8-2.4)
[2023-06-25 08:20] LABS: CALCIUM 7.8 mg/dL (8.5-10.1); CREATININE 0.7 mg/dL (0.55-1.3); PHOSPHOROUS 2.5 mg/dL (2.5-4.9)
[2023-06-25 08:22] LABS: BILIRUBIN,TOTAL 0.2 mg/dL (0.2-1); TOT PROT 4.4 g/dl (6.4-8.2)
[2023-06-25] MEDS: COLLAGENASE CLOSTRIDIUM HIST. 30 GRAMS TUBE TP SCH (09:09)
[2023-06-25] MEDS: POTASSIUM CHLORIDE ORAL LIQUID 20 MEQ/15 ML NGT SCH ×2 (09:09→21:19)
[2023-06-25] MEDS: PANTOPRAZOLE SODIUM 40 MG VIAL IVPUSH SCH (09:09)
[2023-06-25] MEDS: ENOXAPARIN NA (PORCINE) 30 MG/0.3 ML DISP.SYRIN SQ SCH ×2 (09:10→21:19)
[2023-06-25] MEDS: MUPIROCIN 2% TOPICAL OINTMENT FOR DECOLONIZATION NS SCH ×2 (09:10→21:20)
[2023-06-25] MEDS: MEMANTINE HCL 5 MG TABLET (UD) PO SCH (09:10)
[2023-06-25] MEDS: CALCIUM 500MG/VIT-D 200 UNITS COMBO TABLET (FP) PO SCH (09:10)
[2023-06-25] MEDS ORDERED: MAGNESIUM 2GM/50ML STERILE WATER IVPB IVPB ONE (10:00)
[2023-06-25] MEDS: PROPOFOL 1,000,000 MCG/100 ML VIAL IVPB SCH (17:10)
[2023-06-25] MEDS ORDERED: LACTATED RINGERS SOLUTION 1,000 ML/1,000 ML INFUS.BAG IV SCH (18:15)
[2023-06-25] MEDS ORDERED: DIGOXIN 0.5 MG/2 ML AMPUL IVPUSH ONE (18:17)
[2023-06-25] MEDS: FENTANYL NS IVPB 500 MCG/100 ML BAG IVPB SCH ×2 (18:19)
[2023-06-25 19:56] LABS: POTASSIUM 3.5 mmol/L (3.5-5.1)
[2023-06-25 19:58] LABS: BLOOD UREA NITROGEN 21.4 mg/dL (7-18)
[2023-06-25 20:01] LABS: CALCIUM 7.5 mg/dL (8.5-10.1); CREATININE 0.6 mg/dL (0.55-1.3)
[2023-06-25] MEDS: CHLORHEXIDINE GLUCONATE 4% CLEANSER FOR DECOLONIZATION TP SCH (21:19)
[2023-06-25] MEDS: DONEPEZIL HCL 5 MG TABLET (FP) PO SCH (21:20)
[2023-06-26] MEDS: PIPERACILLIN/TAZOB 3.375 GM 3.375 GM in DEXTROSE 5%-WATER - 50 ML IVPB SCH ×3 (01:09→17:18)
[2023-06-26] MEDS: DIGOXIN 0.5 MG/2 ML AMPUL IVPUSH SCH ×3 (03:00→09:37)
[2023-06-26 08:09] LABS: HEMOGLOBIN 8.9 GM/dL (10.7-15.3); MCH 25.3 pg (25.7-33.7); MCHC 30.7 g/dl (32.0-36.0); MEAN CELL VOLUME 82.4 fl (80-96); MEAN PLT VOLUME 9.7 fl (7.5-11.1); PLATELET COUNT 265 10^3/uL (134-434); RBC 3.52 M/mm3 (3.60-5.2); RDW 16.7 % (11.6-15.6)
[2023-06-26 08:20] LABS: POTASSIUM 5.1 mmol/L (3.5-5.1)
[2023-06-26 08:25] LABS: CALCIUM 7.7 mg/dL (8.5-10.1)
[2023-06-26 08:26] LABS: ALBUMIN 1.3 g/dl (3.4-5.0); BLOOD UREA NITROGEN 24.7 mg/dL (7-18); MAGNESIUM 2.5 mg/dL (1.8-2.4)
[2023-06-26 08:29] LABS: CREATININE 0.5 mg/dL (0.55-1.3); PHOSPHOROUS 1.9 mg/dL (2.5-4.9)
[2023-06-26 08:30] LABS: BILIRUBIN,TOTAL 0.2 mg/dL (0.2-1); TOT PROT 4.5 g/dl (6.4-8.2)
[2023-06-26] MEDS: ALBUTEROL SO4 2.5/IPRATROPIUM 0.5 INH SOL 3 ML VIAL.NEB. NEB SCH ×4 (08:31→20:15)
[2023-06-26] MEDS ORDERED: AMIODARONE IN DEXTROSE,ISO-OSM 150 MG/100 ML BAG IVPB ONE ×2 (08:47→20:34)
[2023-06-26] MEDS ORDERED: SODIUM PHOSPHATE - 0 MM in DEXTROSE 5%-WATER - 250 ML IVPB ONE (08:57)
[2023-06-26] MEDS ORDERED: SODIUM PHOSPHATE - 15 MM in DEXTROSE 5%-WATER - 250 ML IVPB ONE (09:03)
[2023-06-26] MEDS: PANTOPRAZOLE SODIUM 40 MG VIAL IVPUSH SCH (09:09)
[2023-06-26] MEDS: ENOXAPARIN NA (PORCINE) 30 MG/0.3 ML DISP.SYRIN SQ SCH ×2 (09:10→21:22)
[2023-06-26] MEDS: methylPREDNISolone NA SUCC 40 MG/1 ML VIAL IVPB SCH (09:10)
[2023-06-26] MEDS ORDERED: AMIODARONE IN DEXTROSE,ISO-OSM 360 MG/200 ML BAG ONE (09:23)
[2023-06-26] MEDS: CALCIUM 500MG/VIT-D 200 UNITS COMBO TABLET (FP) PO SCH (09:27)
[2023-06-26] MEDS: MEMANTINE HCL 5 MG TABLET (UD) PO SCH (09:27)
[2023-06-26] MEDS: MUPIROCIN 2% TOPICAL OINTMENT FOR DECOLONIZATION NS SCH ×2 (09:29→21:23)
[2023-06-26] MEDS: COLLAGENASE CLOSTRIDIUM HIST. 30 GRAMS TUBE TP SCH (09:30)
[2023-06-26] MEDS: FENTANYL NS IVPB 500 MCG/100 ML BAG IVPB SCH ×2 (10:15→23:00)
[2023-06-26] MEDS: PROPOFOL 1,000,000 MCG/100 ML VIAL IVPB SCH (11:00)
[2023-06-26 11:13] LABS: ANISOCYTOSIS 0; HELMET CELLS 0; HOWELL-JOLLY BODIES 0; MACROCYTOSIS 0; OVALOCYTE 0; ROULEAU 0; SICKELED CELLS 0; TARGET CELLS 0; TEAR DROP CELLS 0; TOXIC GRANULATION 0
[2023-06-26] MEDS ORDERED: AMIODARONE IN DEXTROSE,ISO-OSM 150 MG/100 ML BAG ONE (20:33)
[2023-06-26] MEDS ORDERED: AMIODARONE IN DEXTROSE,ISO-OSM 360 MG/200 ML BAG IV SCH (20:45)
[2023-06-26] MEDS: CHLORHEXIDINE GLUCONATE 4% CLEANSER FOR DECOLONIZATION TP SCH (21:23)
[2023-06-26] MEDS: DONEPEZIL HCL 5 MG TABLET (FP) PO SCH (21:25)
[2023-06-26] MEDS: PHENYLEPHRINE NS PREMIX 50,000 MCG/500 ML BAG CVP SCH (23:00)
[2023-06-26] MEDS ORDERED: PHENYLEPHRINE HCL 10 MG/1 ML SINGLE DOSE VIAL ONE (23:03)
[2023-06-27] MEDS: PIPERACILLIN/TAZOB 3.375 GM 3.375 GM in DEXTROSE 5%-WATER - 50 ML IVPB SCH ×3 (01:06→17:01)
[2023-06-27] MEDS: AMIODARONE IN DEXTROSE,ISO-OSM 360 MG/200 ML BAG IV SCH (03:00)
[2023-06-27] MEDS: ALBUTEROL SO4 2.5/IPRATROPIUM 0.5 INH SOL 3 ML VIAL.NEB. NEB SCH ×4 (07:25→21:16)
[2023-06-27 07:46] LABS: HEMATOCRIT 28.3 % (32.4-45.2); HEMOGLOBIN 8.6 GM/dL (10.7-15.3); MCH 25.5 pg (25.7-33.7); MCHC 30.3 g/dl (32.0-36.0); MEAN CELL VOLUME 84.2 fl (80-96); MEAN PLT VOLUME 10.1 fl (7.5-11.1); PLATELET COUNT 220 10^3/uL (134-434); RBC 3.36 M/mm3 (3.60-5.2); RDW 16.9 % (11.6-15.6); WHITE BLOOD COUNT 28.1 K/mm3 (4.0-10.0)
[2023-06-27 08:09] LABS: POTASSIUM 4.6 mmol/L (3.5-5.1)
[2023-06-27 08:18] LABS: ALBUMIN 1.2 g/dl (3.4-5.0); BLOOD UREA NITROGEN 27.1 mg/dL (7-18); CALCIUM 7.8 mg/dL (8.5-10.1); MAGNESIUM 2.4 mg/dL (1.8-2.4)
[2023-06-27 08:21] LABS: CREATININE 0.8 mg/dL (0.55-1.3); PHOSPHOROUS 4.9 mg/dL (2.5-4.9)
[2023-06-27 08:22] LABS: BILIRUBIN,TOTAL 0.1 mg/dL (0.2-1)
[2023-06-27 08:23] LABS: TOT PROT 4.4 g/dl (6.4-8.2)
[2023-06-27] MEDS: FENTANYL NS IVPB 500 MCG/100 ML BAG IVPB SCH ×3 (08:34→20:30)
[2023-06-27 09:33] LABS: ANISOCYTOSIS 2+; MACROCYTOSIS 1+; OVALOCYTE 2+
[2023-06-27] MEDS: PANTOPRAZOLE SODIUM 40 MG VIAL IVPUSH SCH (10:19)
[2023-06-27] MEDS: methylPREDNISolone NA SUCC 40 MG/1 ML VIAL IVPB SCH (10:19)
[2023-06-27] MEDS: ENOXAPARIN NA (PORCINE) 30 MG/0.3 ML DISP.SYRIN SQ SCH ×2 (10:19→21:04)
[2023-06-27] MEDS: MEMANTINE HCL 5 MG TABLET (UD) PO SCH (10:20)
[2023-06-27] MEDS: PROPOFOL 1,000,000 MCG/100 ML VIAL IVPB SCH (10:20)
[2023-06-27] MEDS: CALCIUM 500MG/VIT-D 200 UNITS COMBO TABLET (FP) PO SCH (10:20)
[2023-06-27] MEDS: AMIODARONE HCL 200 MG TABLET PO SCH ×2 (10:20→21:05)
[2023-06-27] MEDS: COLLAGENASE CLOSTRIDIUM HIST. 30 GRAMS TUBE TP SCH (10:21)
[2023-06-27] MEDS: MUPIROCIN 2% TOPICAL OINTMENT FOR DECOLONIZATION NS SCH ×2 (11:00→21:04)
[2023-06-27 12:30] VITALS: BMI 16.2
[2023-06-27] MEDS: PHENYLEPHRINE NS PREMIX 50,000 MCG/500 ML BAG CVP SCH (17:01)
[2023-06-27] MEDS: CHLORHEXIDINE GLUCONATE 4% CLEANSER FOR DECOLONIZATION TP SCH (21:04)
[2023-06-27] MEDS: DONEPEZIL HCL 5 MG TABLET (FP) PO SCH (21:04)
[2023-06-28] MEDS: PIPERACILLIN/TAZOB 3.375 GM 3.375 GM in DEXTROSE 5%-WATER - 50 ML IVPB SCH ×3 (01:31→17:14)
[2023-06-28 07:02] LABS: HEMATOCRIT 23.9 % (32.4-45.2); HEMOGLOBIN 7.2 GM/dL (10.7-15.3); MCH 25.2 pg (25.7-33.7); MCHC 30.3 g/dl (32.0-36.0); MEAN CELL VOLUME 83.2 fl (80-96); MEAN PLT VOLUME 10.4 fl (7.5-11.1); PLATELET COUNT 170 10^3/uL (134-434); RBC 2.88 M/mm3 (3.60-5.2); RDW 17.1 % (11.6-15.6)
[2023-06-28] MEDS: ALBUTEROL SO4 2.5/IPRATROPIUM 0.5 INH SOL 3 ML VIAL.NEB. NEB SCH ×2 (07:15→11:17)
[2023-06-28 07:25] LABS: POTASSIUM 4.4 mmol/L (3.5-5.1)
[2023-06-28 07:32] LABS: ALBUMIN 1.1 g/dl (3.4-5.0); BLOOD UREA NITROGEN 31.3 mg/dL (7-18); CALCIUM 7.5 mg/dL (8.5-10.1); MAGNESIUM 2.2 mg/dL (1.8-2.4)
[2023-06-28 07:35] LABS: CREATININE 1.1 mg/dL (0.55-1.3); PHOSPHOROUS 3.9 mg/dL (2.5-4.9)
[2023-06-28 07:37] LABS: BILIRUBIN,TOTAL 0.2 mg/dL (0.2-1); TOT PROT 3.9 g/dl (6.4-8.2)
[2023-06-28] MEDS: PHENYLEPHRINE NS PREMIX 50,000 MCG/500 ML BAG CVP SCH ×4 (08:45→17:42)
[2023-06-28] MEDS: FENTANYL NS IVPB 500 MCG/100 ML BAG IVPB SCH ×2 (08:46→14:19)
[2023-06-28] MEDS: AMIODARONE IN DEXTROSE,ISO-OSM 360 MG/200 ML BAG IV SCH (08:47)
[2023-06-28] MEDS: ENOXAPARIN NA (PORCINE) 30 MG/0.3 ML DISP.SYRIN SQ SCH ×2 (09:01→21:19)
[2023-06-28] MEDS: AMIODARONE HCL 200 MG TABLET PO SCH ×2 (09:01→21:18)
[2023-06-28] MEDS: PANTOPRAZOLE SODIUM 40 MG VIAL IVPUSH SCH (09:01)
[2023-06-28] MEDS: CALCIUM 500MG/VIT-D 200 UNITS COMBO TABLET (FP) PO SCH (09:01)
[2023-06-28] MEDS: methylPREDNISolone NA SUCC 40 MG/1 ML VIAL IVPB SCH (09:01)
[2023-06-28] MEDS: MEMANTINE HCL 5 MG TABLET (UD) PO SCH (09:02)
[2023-06-28] MEDS: COLLAGENASE CLOSTRIDIUM HIST. 30 GRAMS TUBE TP SCH (09:03)
[2023-06-28] MEDS: MUPIROCIN 2% TOPICAL OINTMENT FOR DECOLONIZATION NS SCH (09:04)
[2023-06-28 09:47] LABS: ANISOCYTOSIS 0; HELMET CELLS 0; HOWELL-JOLLY BODIES 0; MACROCYTOSIS 0; OVALOCYTE 0; ROULEAU 0; SICKELED CELLS 0; TARGET CELLS 0; TEAR DROP CELLS 0; TOXIC GRANULATION 0
[2023-06-28] MEDS: PROPOFOL 1,000,000 MCG/100 ML VIAL IVPB SCH (11:00)
[2023-06-28] MEDS ORDERED: LACTATED RINGERS SOLUTION 1000 ML INFUS.BAG IV ONE (11:29)
[2023-06-28] MEDS: CHLORHEXIDINE GLUCONATE 4% CLEANSER FOR DECOLONIZATION TP SCH (21:18)
[2023-06-28] MEDS: DONEPEZIL HCL 5 MG TABLET (FP) PO SCH (21:18)
[2023-06-29] MEDS: PIPERACILLIN/TAZOB 3.375 GM 3.375 GM in DEXTROSE 5%-WATER - 50 ML IVPB SCH ×3 (02:09→17:19)
[2023-06-29 07:21] LABS: HEMATOCRIT 23.1 % (32.4-45.2); MCH 25.2 pg (25.7-33.7); MEAN CELL VOLUME 83.8 fl (80-96); MEAN PLT VOLUME 10.4 fl (7.5-11.1); PLATELET COUNT 187 10^3/uL (134-434); RBC 2.76 M/mm3 (3.60-5.2); RDW 17.2 % (11.6-15.6)
[2023-06-29 07:33] LABS: HEMOGLOBIN 6.9 GM/dL (10.7-15.3)
[2023-06-29 07:47] LABS: POTASSIUM 4.7 mmol/L (3.5-5.1)
[2023-06-29 07:51] LABS: BLOOD UREA NITROGEN 34.1 mg/dL (7-18)
[2023-06-29 07:52] LABS: ALBUMIN 0.9 g/dl (3.4-5.0); CALCIUM 7.4 mg/dL (8.5-10.1); MAGNESIUM 2.2 mg/dL (1.8-2.4)
[2023-06-29 07:55] LABS: CREATININE 1.4 mg/dL (0.55-1.3); PHOSPHOROUS 4.8 mg/dL (2.5-4.9)
[2023-06-29 07:56] LABS: BILIRUBIN,TOTAL 0.1 mg/dL (0.2-1); TOT PROT 3.3 g/dl (6.4-8.2)
[2023-06-29 09:13] LABS: ANISOCYTOSIS 0; MACROCYTOSIS 0
[2023-06-29] MEDS: AMIODARONE HCL 200 MG TABLET PO SCH ×2 (09:31→21:21)
[2023-06-29] MEDS: MEMANTINE HCL 5 MG TABLET (UD) PO SCH (09:31)
[2023-06-29] MEDS: COLLAGENASE CLOSTRIDIUM HIST. 30 GRAMS TUBE TP SCH (09:31)
[2023-06-29] MEDS: PANTOPRAZOLE SODIUM 40 MG VIAL IVPUSH SCH (09:31)
[2023-06-29] MEDS: methylPREDNISolone NA SUCC 40 MG/1 ML VIAL IVPB SCH (09:31)
[2023-06-29] MEDS: AMIODARONE IN DEXTROSE,ISO-OSM 360 MG/200 ML BAG IV SCH (09:31)
[2023-06-29] MEDS: CALCIUM 500MG/VIT-D 200 UNITS COMBO TABLET (FP) PO SCH (09:31)
[2023-06-29] MEDS: ENOXAPARIN NA (PORCINE) 30 MG/0.3 ML DISP.SYRIN SQ SCH ×2 (09:32→21:21)
[2023-06-29] MEDS: PHENYLEPHRINE NS PREMIX 50,000 MCG/500 ML BAG CVP SCH ×2 (09:43→16:16)
[2023-06-29] MEDS: FENTANYL NS IVPB 500 MCG/100 ML BAG IVPB SCH ×2 (11:00→16:47)
[2023-06-29] MEDS: CHLORHEXIDINE GLUCONATE 4% CLEANSER FOR DECOLONIZATION TP SCH (21:21)
[2023-06-29] MEDS: DONEPEZIL HCL 5 MG TABLET (FP) PO SCH (21:21)
[2023-06-30] MEDS: PIPERACILLIN/TAZOB 3.375 GM 3.375 GM in DEXTROSE 5%-WATER - 50 ML IVPB SCH ×2 (01:55→10:19)
[2023-06-30 07:10] LABS: HEMATOCRIT 22.6 % (32.4-45.2); MCH 25.2 pg (25.7-33.7); MCHC 29.9 g/dl (32.0-36.0); MEAN CELL VOLUME 84.2 fl (80-96); MEAN PLT VOLUME 10.5 fl (7.5-11.1); PLATELET COUNT 190 10^3/uL (134-434); RBC 2.68 M/mm3 (3.60-5.2); RDW 17.6 % (11.6-15.6); WHITE BLOOD COUNT 15.1 K/mm3 (4.0-10.0)
[2023-06-30 07:21] LABS: HEMOGLOBIN 6.8 GM/dL (10.7-15.3)
[2023-06-30 07:27] LABS: POTASSIUM 4.3 mmol/L (3.5-5.1)
[2023-06-30 07:33] LABS: BLOOD UREA NITROGEN 38.4 mg/dL (7-18); CALCIUM 7.2 mg/dL (8.5-10.1); MAGNESIUM 2.1 mg/dL (1.8-2.4)
[2023-06-30 07:36] LABS: PHOSPHOROUS 4.7 mg/dL (2.5-4.9)
[2023-06-30 07:37] LABS: CREATININE 1.8 mg/dL (0.55-1.3)
[2023-06-30 07:38] LABS: BILIRUBIN,TOTAL 0.2 mg/dL (0.2-1); TOT PROT 3.9 g/dl (6.4-8.2)
[2023-06-30] MEDS: PANTOPRAZOLE SODIUM 40 MG VIAL IVPUSH SCH (10:18)
[2023-06-30] MEDS: methylPREDNISolone NA SUCC 40 MG/1 ML VIAL IVPB SCH (10:18)
[2023-06-30] MEDS: ENOXAPARIN NA (PORCINE) 30 MG/0.3 ML DISP.SYRIN SQ SCH (10:19)
[2023-06-30] MEDS: MEMANTINE HCL 5 MG TABLET (UD) PO SCH (10:19)
[2023-06-30] MEDS: CALCIUM 500MG/VIT-D 200 UNITS COMBO TABLET (FP) PO SCH (10:19)
[2023-06-30] MEDS: AMIODARONE HCL 200 MG TABLET PO SCH (10:19)
[2023-06-30] MEDS ORDERED: LORazepam 2 MG/ML SDV VIAL IVPUSH PRN (11:47)
[2023-06-30] MEDS ORDERED: MORPHINE SULFATE/0.9% NACL/PF 100 MG/100 ML BAG IVPB SCH (12:00)
[2023-06-30 12:24] VITALS: RESP 20; TEMP 98.2
[2023-06-30 15:21] VITALS: BP 106/69; PULSE 77
== END 2023-06-30 19:50 | disposition expired | DRG 870 ==
LOC: JER 19:01 → JERBED 19:52 → J4W 06-23 07:39 → JICU 06-23 15:08
PROVIDERS: ADMIT Internal Medicine; ATTEND Internal Medicine
PROC: 0BH17EZ Insertion of Endotracheal Airway into Trachea, Via Natural or Artificial Opening (ICD-10-PCS; principal; 2023-06-23)
PROC: 5A1955Z Respiratory Ventilation, Greater than 96 Consecutive Hours (ICD-10-PCS; 2023-06-23)
PROC: 05HM33Z Insertion of Infusion Device into Right Internal Jugular Vein, Percutaneous Approach (ICD-10-PCS; 2023-06-29)
PROC: B543ZZA Ultrasonography of Right Jugular Veins, Guidance (ICD-10-PCS; 2023-06-29)
DX: A41.89 Other specified sepsis (principal); L89.154 Pressure ulcer of sacral region, stage 4; J96.01 Acute respiratory failure with hypoxia; R65.21 Severe sepsis with septic shock; R53.2 Functional quadriplegia; E43 Unspecified severe protein-calorie malnutrition; J18.9 Pneumonia, unspecified organism; R64 Cachexia; N17.9 Acute kidney failure, unspecified; E87.20 Acidosis, unspecified; Z68.1 Body mass index [BMI] 19.9 or less, adult; I48.91 Unspecified atrial fibrillation; I08.1 Rheumatic disorders of both mitral and tricuspid valves; R62.7 Adult failure to thrive; D72.829 Elevated white blood cell count, unspecified; R19.7 Diarrhea, unspecified; E86.0 Dehydration; I10 Essential (primary) hypertension; G30.9 Alzheimer's disease, unspecified; F02.80 Dementia in other diseases classified elsewhere, unspecified severity, without behavioral disturbance, psychotic disturbance, mood disturbance, and anxiety; W06.XXXA Fall from bed, initial encounter; Y92.092 Bedroom in other non-institutional residence as the place of occurrence of the external cause; Z74.01 Bed confinement status
CPT/HCPCS: 0241U-QW; 31500; 36415; 36600; 70450-TC; 71045-TC-FY; 72125-TC; 72170-TC-FY; 80048; 80053; 80162; 81003; 82550; 82553; 82803; 82962; 83605; 83735; 84100; 84484; 85025; 85027; 85610; 85730; 86850; 86900; 86901; 86922; 87040; 87070; 87081; 87086; 87186; 87205; 87635; 87899; 93005; 93010; 93306-TC; 94002; 94640; 99285-25; J0282